=== PATIENT | male | born 1940 | race Caucasian/White ===

== ENCOUNTER 2019-10-11 09:39 | Inpatient (IN) | payer BC, MEDICARE ==
[~2019-10-11] VITALS: Ht 185.4 cm; Wt 90.3 kg
--- NOTE | 2019-10-11 09:50 | NUR ---
RENE RA 89 From Home "Everything hurts Abdomen worse +Nausea/vomiting +Constipation". Patient a/ox4, breathing even and unlabored, no sob noted, needs attended, kept comfortable. Attached to the satellite project site monitor.
[2019-10-11] MEDS ORDERED: MORPHINE SULFATE INJ 4 MG/ML DISP.SYRIN ONE (09:59)
[2019-10-11] MEDS ORDERED: IV NS 0.9% 1,000 ML BAG IV ONE ×2 (10:00→12:00)
[2019-10-11] MEDS ORDERED: MORPHINE SULFATE INJ 2 MG/ML DISP.SYRIN IV ONE (10:00)
[2019-10-11] MEDS ORDERED: CARV6.252 PO (10:57)
[2019-10-11] MEDS ORDERED: NITR0.4T48 PO (10:57)
[2019-10-11] MEDS ORDERED: ATOR20TA PO (10:57)
[2019-10-11] MEDS ORDERED: CLOP75TA15 PO (10:57)
[2019-10-11] MEDS ORDERED: LISI2.5T2 PO (10:57)
[2019-10-11] MEDS ORDERED: ASPI-1498 PO (10:57)
[2019-10-11 11:16] LABS: BASOPHILS # (AUTO) 0.3 /CMM (0.0-0.2); BASOPHILS % (AUTO) 0.8 % (0.0-2.0); EOSINOPHILS % (AUTO) 0.5 % (0.0-6.0); HEMATOCRIT 34 % (39-51); HEMOGLOBIN 11.2 g/dL (13.5-17.5); LYMPHOCYTES % (AUTO) 5.4 % (20.0-44.0); MEAN CORPUSCULAR HGB CONC 33 g/dl (31.0-36.0); MEAN CORPUSCULAR VOLUME 99 fL (80-96); MONOCYTES # (AUTO) 3.1 /CMM (0.1-1.30); MONOCYTES % (AUTO) 8.3 % (2.0-12.0); NEUTROPHILS # (AUTO) 31.4 /CMM (1.8-8.9); PLATELET COUNT (AUTO) 536 /CMM (150-450)
[2019-10-11] MEDS ORDERED: VANCOMYCIN HCL 1 GM in IV D5W 260 ML IV ONE (11:30)
[2019-10-11] MEDS ORDERED: PIPERACILLIN /TAZOBACTAM 3.375 G in IV D5W 50 ML IV ONE (11:30)
[2019-10-11 11:40] LABS: ALANINE AMINOTRANSFERASE 26 U/L (12-78); ALKALINE PHOSPHATASE 150 U/L (46-116); ASPARTATE AMINOTRANSFERASE 24 U/L (15-37); BILIRUBIN,DIRECT 0.2 mg/dL (0.0-0.2); BILIRUBIN,TOTAL 0.4 mg/dL (0.2-1.0); CARBON DIOXIDE 18 mmol/L (21-32); CHLORIDE 94 mmol/L (98-107); CREATININE 4.9 mg/dL (0.6-1.3); GLUCOSE 122 mg/dL (74-106); POTASSIUM 4.2 mmol/L (3.5-5.1); SODIUM SERUM 128 mmol/L (136-145); TOTAL PROTEIN, SERUM 6.3 g/dL (6.4-8.2)
[2019-10-11 11:50] LABS: UREA NITROGEN, BLOOD 142 mg/dL (7-18)
--- NOTE | 2019-10-11 12:00 | NUR ---
PATIENT RESTING, NO DISTRESS NOTED. NEEDS ATTENDED.
[2019-10-11 12:14] LABS: BAND % (MANUAL) 3 % (0.0-5.0); EOSINOPHILS % (MANUAL) 1 % (0-4); LYMPHOCYTES % (MANUAL) 7 % (16-48); MONOCYTES % (MANUAL) 4 % (0-11.0); NEUTROPHILS % (MANUAL) 85 (42-76)
--- NOTE | 2019-10-11 13:30 | NUR ---
MEDICARE SALES REPRESENTATIVE NOTE Received patient awake in bed. In room 114-1. AO x3. Hard of hearing. Hooked up to tele box. Has urinal at bedside. Able to walk to bathroom. No signs of distress. On NC 3L tolerating well. No co pain or discomfort. Safety measures reinforced. Call light within reach. Will continue to monitor.
[2019-10-11 14:16] LABS: APPEARANCE,URINE CLEAR (CLEAR); BILIRUBIN,URINE NEGATIVE (NEGATIVE); BLOOD, URINE NEGATIVE Ery/uL (NEGATIVE); COLOR,URINE YELLOW (YELLOW); KETONES,URINE NEGATIVE (NEGATIVE); LEUKOCYTE ESTERASE ,URINE NEGATIVE (NEGATIVE); NITRITE, URINE NEGATIVE (NEGATIVE); PH,URINE 5.5 (5.0-8.0); PROTEIN,URINE NEGATIVE (NEGATIVE); UGLUCOSE NEGATIVE (NEGATIVE); UROBILINOGEN,URINE 0.2 EU/dL (0.2)
[2019-10-11 14:26] LABS: EOSINOPHIL,URINE None Seen
--- NOTE | 2019-10-11 14:30 | NUR ---
REPORT GIVEN TO SHERRI COHEN
[2019-10-11 14:32] LABS: CREATININE, URINE 122.6 MG/DL (30.0-125.0); URINE TOTAL PROTEIN 46.3 mg/dL (0-11.9)
[2019-10-11] MEDS ORDERED: IV NS 0.9% 1,000 ML IV PRN (14:33)
[2019-10-11] MEDS ORDERED: FEE PK DOSING 1 MIN EA MC ONE (14:53)
[2019-10-11] MEDS ORDERED: Z GUARD REMEDY 2 OZ OINT TP PRN (15:00)
[2019-10-11] MEDS ORDERED: MAGNESIUM HYDROXIDE 30 ML UDC PO PRN (15:00)
[2019-10-11] MEDS ORDERED: HYDROCODONE/APAP 5/325MG 1 EACH TABLET PO PRN (15:00)
[2019-10-11] MEDS ORDERED: ZOLPIDEM TARTRATE 5 MG TABLET PO PRN (15:00)
[2019-10-11] MEDS ORDERED: ACETAMINOPHEN 325 MG TABLET PO PRN (15:00)
[2019-10-11] MEDS ORDERED: MAG HYDROX/AL HYDROX/SIMETH 30 ML UDC PO PRN (15:00)
--- NOTE | 2019-10-11 15:13 | NUR ---
PATIENT A/OX3, C/O MILD SOB, 96-98% ON 3LPM VIA NC. PATIENT TRANSFERRED TO ROOM 314-1 VIA ACLS PROTOCOL. NEEDS ATTENDED.
[2019-10-11 15:27] LABS: ABG BASE EXCESS -9.2 mmol/L; ABG OXYGEN SATURATION 98.4 % (92.0-98.5); ABG PCO2 30.2 mmHg (35.0-45.0); ABG PH 7.329 (7.350-7.450); ABG PO2 127.4 mmHg (75.0-100.0); COHb 0.9 % (0.5-1.5); MetHb 0.3 % (0.0-1.5); O2Hb 97.2 % (94.0-97.0); SITE, ABG Right Femoral; VENT MODE, BG NC 3L
--- NOTE | 2019-10-11 15:30 | NUR ---
SURGICAL SERVICES COORDINATOR OPENING NOTE Pls disregard time of 1330 in previous note. It should be 1530.
[2019-10-11 16:00] VITALS: BP 103/58
[2019-10-11] MEDS: PIPERACILLIN /TAZOBACTAM 2.25 G in IV D5W 50 ML IV SCH ×2 (18:26→23:14)
--- NOTE | 2019-10-11 18:45 | NUR ---
TYPE CASTING MACHINE OPERATOR CLOSING NOTE Patient in bed appears calm and relaxed. No signs of distress. All due meds given. All needs met. Kept clean and comfortable. Vital signs within normal limits. Safety measures reinforced. Call light within reache. Bed locked and on lowest position. Will endorse to electric accounting machine operator nurse for sara.
[2019-10-11 20:00] VITALS: BP 102/51
--- NOTE | 2019-10-11 20:23 | NUR ---
RN NOTES, PATIENT NOTED W/O THE O2, NOTED PATIENT LETHARGIC, WITH RR 26-30, PUT PATIENT ON 5LPM VIA NC AND O2 WENT TO 97%, STILL CONTINUE LETHARGIC INFORMED BLOSSOM AND HE REPLIED WITH NNO BUT CONTINUE MONITORING, HE REVIEW THE PRIOR LABS, HE STATED [facility] AWARE AND PATIENT WITH SIGNIFICANT PNA AND PLEURAL EFFUSION, AND NEED THORACENTESIS PER [facility] ALREADY ORDERED, WILL CONTINUE TO MONITOR CLOSELY.
[2019-10-11] MEDS: DOXYCYCLINE 100 MG in IV NS 0.9% 100 ML IV SCH (22:16)
[2019-10-12] VITALS: BP 102/54
[2019-10-12 04:00] VITALS: BP 97/55
[2019-10-12] MEDS: PIPERACILLIN /TAZOBACTAM 2.25 G in IV D5W 50 ML IV SCH ×2 (05:03→13:08)
[2019-10-12 06:59] LABS: BASOPHILS # (AUTO) 0.2 /CMM (0.0-0.2); BASOPHILS % (AUTO) 0.4 % (0.0-2.0); EOSINOPHILS % (AUTO) 0.1 % (0.0-6.0); HEMATOCRIT 32 % (39-51); HEMOGLOBIN 10.8 g/dL (13.5-17.5); LYMPHOCYTES # (AUTO) 2.7 /CMM (0.8-4.8); LYMPHOCYTES % (AUTO) 4.8 % (20.0-44.0); MEAN CORPUSCULAR HGB CONC 33 g/dl (31.0-36.0); MEAN CORPUSCULAR VOLUME 97 fL (80-96); MONOCYTES # (AUTO) 3.3 /CMM (0.1-1.30); MONOCYTES % (AUTO) 5.8 % (2.0-12.0); NEUTROPHILS # (AUTO) 49.6 /CMM (1.8-8.9); NEUTROPHILS % (AUTO) 88.9 % (43.0-81.0); PLATELET COUNT (AUTO) 612 /CMM (150-450); RED BLOOD CELL COUNT(AUTO) 3.33 MIL/uL (4.5-6.0)
[2019-10-12 07:09] LABS: CALCIUM, SERUM 8.5 mg/dL (8.5-10.1); CARBON DIOXIDE 24 mmol/L (21-32); CHLORIDE 98 mmol/L (98-107); CREATININE 3.8 mg/dL (0.6-1.3); GLUCOSE 163 mg/dL (74-106); POTASSIUM 4.1 mmol/L (3.5-5.1); SODIUM SERUM 138 mmol/L (136-145)
--- NOTE | 2019-10-12 07:10 | NUR ---
RN NOTES, NO SIGNIFICANT CHANGE IN CONDITION DURING THE NIGHT, PATIENT CONTINUE ON 5LPM VIA NC WITH O2 SAT LEVEL >94%, PATIENT LETHARGIC AT TIMES WITH SOB, PER BLOSSOM CONT TO MONITOR AND [facility] AWARE AND ORDERED ALREADY THORACENTESIS, WILL ENDORSE CONTINUITY OF CARE TO ONCOMING NURSE.
[2019-10-12 07:13] LABS: UREA NITROGEN, BLOOD 149 mg/dL (7-18)
[2019-10-12 07:14] LABS: CHOLESTEROL 61 mg/dL (<200); CREATINE KINASE, TOTAL 58 U/L (39-308); HDL CHOLESTEROL 11 mg/dL (40-60); LDL 26 mg/dL (0-99); TRIGLYCERIDES 115 mg/dL (30-150)
[2019-10-12 07:19] LABS: ALANINE AMINOTRANSFERASE 29 U/L (12-78); ALBUMIN 2.1 g/dL (3.4-5.0); ALKALINE PHOSPHATASE 153 U/L (46-116); ASPARTATE AMINOTRANSFERASE 29 U/L (15-37); B-TYPE NATRIURETIC PEPTIDE 1413 PG/ML (0-125); BILIRUBIN,TOTAL 0.6 mg/dL (0.2-1.0); MAGNESIUM 2.7 mg/dL (1.8-2.4); PHOSPHORUS 6.4 mg/dL (2.5-4.9); TOTAL PROTEIN, SERUM 6.6 g/dL (6.4-8.2)
[2019-10-12 07:23] LABS: APPEARANCE,URINE CLEAR (CLEAR); BILIRUBIN,URINE NEGATIVE (NEGATIVE); BLOOD, URINE NEGATIVE Ery/uL (NEGATIVE); COLOR,URINE YELLOW (YELLOW); CREATININE, URINE 72.8 MG/DL (30.0-125.0); KETONES,URINE NEGATIVE (NEGATIVE); LEUKOCYTE ESTERASE ,URINE NEGATIVE (NEGATIVE); NITRITE, URINE NEGATIVE (NEGATIVE); PH,URINE 5.5 (5.0-8.0); PROTEIN,URINE NEGATIVE (NEGATIVE); UGLUCOSE NEGATIVE (NEGATIVE); URINE TOTAL PROTEIN 39.2 mg/dL (0-11.9); UROBILINOGEN,URINE 0.2 EU/dL (0.2)
[2019-10-12 07:26] LABS: WHITE BLOOD COUNT (AUTO) 55.9 K/uL (4.3-11.0)
[2019-10-12 07:45] LABS: BACTERIA,URINE None seen /HPF (None Seen); RBC,URINE 0-2 /HPF (0-2); SQUAMOUS EPITHELIAL CELL,UR Few /HPF (None Seen); WBC,URINE 0-2 /HPF (0-3)
[2019-10-12 07:46] LABS: EOSINOPHIL,URINE None Seen; URIC ACID CRYSTALS,URINE Many /HPF (None Seen)
[2019-10-12 08:00] VITALS: BP 82/55
--- NOTE | 2019-10-12 08:00 | NUR ---
alisson rn note patient in bed ,with sob noted and coffea ground vomiting, on 5l of nc st 94% bed in lowest and locked position on tele monitor sr , rt hand hl is removed by patient will monitor closely
[2019-10-12 08:03] LABS: BAND % (MANUAL) 17 % (0.0-5.0); LYMPHOCYTES % (MANUAL) 4 % (16-48); METAMYELOCYTES % 1 % (0-0); MONOCYTES % (MANUAL) 2 % (0-11.0); MYELOCYTES % 1 % (0-0); NEUTROPHILS % (MANUAL) 75 (42-76)
[2019-10-12] MEDS: DOXYCYCLINE 100 MG in IV NS 0.9% 100 ML IV SCH (08:57)
[2019-10-12] MEDS ORDERED: CLOPIDOGREL BISULFATE 75 MG TABLET PO SCH (09:00)
[2019-10-12] MEDS ORDERED: HEPARIN SODIUM, PORCINE 5000 UNITS/1 ML VIAL SQ SCH (09:00)
[2019-10-12] MEDS: ONDANSETRON HCL/PF 4 MG/2 ML VIAL IVP PRN ×2 (09:00→15:00)
[2019-10-12] MEDS ORDERED: ASPIRIN EC 81 MG TABLET.DR PO SCH (09:00)
--- NOTE | 2019-10-12 09:15 | NUR ---
alisson rn note dr barber at bedside aware that patieny has sob abg ordered , called rt aware that has coffee gerund emeses more then 100 ml,with order give bolus 500 ml notified that bp 82/55 and start ivf
--- NOTE | 2019-10-12 09:30 | NUR ---
alisson rn note spoke with dr giraldo notified that coffee ground emeses more then 100 ml noted , bp 82/89 sat 96% this ti,e dr giraldo ordered abg stat Addendum: 10/12/19 at 0954 by GRADY RONQUILLO RN bp 82/59 Addendum: 10/12/19 at 1341 by GRADY RONQUILLO RN DR GIRALDO AWARE ABG RESULT NO NEW ORDER AT THIS TIME
[2019-10-12 09:51] LABS: ABG BASE EXCESS -4.9 mmol/L; ABG OXYGEN SATURATION 94.8 % (92.0-98.5); ABG PCO2 32.7 mmHg (35.0-45.0); ABG PH 7.389 (7.350-7.450); ABG PO2 87.6 mmHg (75.0-100.0); COHb 0.4 % (0.5-1.5); MetHb 0.2 % (0.0-1.5); O2Hb 94.2 % (94.0-97.0); SITE, ABG Left Brachial; VENT MODE, BG nasal cannula
[2019-10-12] MEDS ORDERED: IV D5/ 0.9% NACL 1,000 ML IV ONE (10:00)
[2019-10-12] MEDS ORDERED: IV NS 0.9% 500 ML IV ONE (10:00)
[2019-10-12 12:00] VITALS: BP_SYST 120; BP_SYST 90; BP_DIAS 45; BP_DIAS 54
--- NOTE | 2019-10-12 12:00 | NUR ---
alisson rn note per dr chambers ok to do thoracentesis today ,dr purcell aware that patient will have thoracentesis ,hold asa and heparin
--- NOTE | 2019-10-12 13:34 | NUR ---
BRANT RN NOTE THORACENTESIS DONE, 400 ML FLUIDS REMOVED ,DRY DRESSING ON RT SIDE PLACED NO BLEEDING NOTED , ALSO SPACEMEN SENT TO LAB, MIDLINE NURSE AT BEDSIDE RT UPPER ARM GAGE18 INSERTED, ON IVF ORDERED, ALL NEEDS ATTENDED
--- NOTE | 2019-10-12 13:36 | NUR ---
BRANT RN NOTE LACTIC ACID 6.3 DR SELBY NOTIFIED. OK TO CONT TO IVF ALSO AWARE THAT PATIENT STILL VOMITING COFFEE GROUND EMESES, STATED THAT DUE KIDNEY DAMAGE AWARE THAT BUN 149 CREAT 3.8 Addendum: 10/12/19 at 1455 by GRADY RONQUILLO RN DR HUDSON NOTIFIED THAT WBC TODAY 55.9
--- NOTE | 2019-10-12 14:00 | NUR ---
dr. stafford notified pt. sbp 80,s gave new orders and does not want to move pt to icu ,will continue to monitor.
--- NOTE | 2019-10-12 15:00 | NUR ---
CHIEF CLERK SHELTER NOTE NOTED PATENT HAS COFFEE GROUND EMESES AGAIN, ZOFRAN 4 MG IV WAS GIVEN ORDERED
[2019-10-12] MEDS ORDERED: IV NS 0.9% 1,000 ML IV PRN (15:19)
[2019-10-12] MEDS ORDERED: IV D5/ 0.9% NACL 1,000 ML IV SCH (15:30)
--- NOTE | 2019-10-12 15:30 | NUR ---
patient become unresponsive and desaturates 80's, rapid response initiated and eventually change to code blue .paatient become pulseless.
--- NOTE | 2019-10-12 15:35 | NUR ---
dr. armani gomez talked to family on phone mary peryr and ok continue coding pt.
[2019-10-12 16:00] VITALS: BP 78/54
[2019-10-12] MEDS ORDERED: IV D5/ 0.9% NACL 1,000 ML IV PRN (16:30)
[2019-10-12] MEDS ORDERED: VASOPRESSIN INJ 20 UNIT in IV NS 0.9% 39 ML IV PRN (16:30)
--- NOTE | 2019-10-12 16:30 | NUR ---
TUBE SPLICER RECEIVED PT FROM BRANT BY BED WITH MONITOR. REPORT RECEIVED FROM GRADY RONQUILLO RN. PT S/P CODE BLUE, INTUBATED DURING CODE BLUE. PLACED ON VENT. PT UNRESPONSIVE WITH FIXED PUPILS. ORALLY SUCTIONED COPIOUS AMOUNTS OF COFFEE-GROUNDS GASTRIC CONTENTS. CXR OBTAINED FOR ETT PLACEMENT. NGT PLACED WITH IMMEDIATE RETURN OF DARK BROWN COFFEE-GROUNDS LIKE DRAINAGE, APPROXIMATELY 600 ML. ORDERS FOR PRESSORS RECEIVED. WILL START WHEN AVAILABLE.
--- NOTE | 2019-10-12 16:35 | NUR ---
pt. orally intubated by er doctor for airway protection. successfully intubated with 7.5 ETtube and secured @ 23 cm center of the lips. co2 detector changed to yellow color and breath sounds coarse rhonchi bilateral with symmetrical chest rise post intubation. vent settings below per dr. barber: AC 24 VT 500ML FIO2 100% NO PEEP VENT PLUGGED INTO RED OUTLET WITH ALARMS ON AND FUNCTIONING. JOSIAHUBAG @ BEDSIDE. Addendum: 10/12/19 at 1643 by CANDELARIA ZHAO RT Amended: Links added.
--- NOTE | 2019-10-12 16:45 | NUR ---
POST ACUTE CARE REGISTERED NURSE PT BECAME BRADYCARDIC PROGRESSING TO PEA AND ASYSTOLE. PULSELESS. CODE BLUE CALLED.
--- NOTE | 2019-10-12 16:45 | NUR ---
MISSION WORKER NOTE PATIENT HAS CODED,SEE CODE BLUE FORM AND TRANSFERRED TO ICU BY BED BY ACLS PROTOCOL WITH RT, REPORT GIVEN TO VERÓNICA TOOL CRIB SUPERVISOR NURSE
--- NOTE | 2019-10-12 16:59 | NUR ---
PT @ 1659 Addendum: 10/12/19 at 1704 by CANDELARIA ZHAO RT Amended: Links added.
--- NOTE | 2019-10-12 16:59 | NUR ---
HEALTH FACILITIES SURVEYOR CODE BLUE TERMINATED BY DR AVITIA AFTER CONTINUED PULSELESSNESS AND AFTER DISCUSSION BY PHONE WITH PT'S SO VON ABREU.
[2019-10-12] MEDS ORDERED: NOREPINEPHRINE 8 MG in IV NS 0.9% 242 ML IV PRN (17:00)
[2019-10-12] MEDS ORDERED: DOSE PER PHARMACY MICAFUNGIN 1 EA XX PRN (17:00)
[2019-10-12] MEDS ORDERED: OCTREOTIDE 1,250 MCG in IV NS 0.9% 247.5 ML IV PRN (17:00)
[2019-10-12] MEDS ORDERED: EPINEPHRINE (1:10,000) SYRINGE 1 MG/10 ML DISP.SYRIN IVP ONE ×2 (17:09→17:31)
[2019-10-12] MEDS ORDERED: CALCIUM CHLORIDE 1,000 MG/10 ML DISP.SYRIN IV ONE ×2 (17:09→17:31)
[2019-10-12] MEDS ORDERED: FEE EMEERGENCY 1 MIN EA MC ONE ×2 (17:09→17:31)
[2019-10-12] MEDS ORDERED: SODIUM BICARBONATE SYR 50 MEQ/50 ML DISP.SYRIN IV ONE (17:09)
[2019-10-12] MEDS ORDERED: MICAFUNGIN SODIUM 100 MG in IV NS 0.9% 100 ML IV SCH (17:30)
[2019-10-12] MEDS ORDERED: ETOMIDATE 2 MG/ML VIAL IV ONE (17:36)
[2019-10-12] MEDS ORDERED: SUCCINYLCHOLINE CHLORIDE 20 MG/ML VIAL IV ONE (17:36)
[2019-10-12] MEDS ORDERED: MEROPENEM 500 MG in IV NS 0.9% 50 ML IV SCH (18:00)
--- NOTE | 2019-10-12 18:40 | NUR ---
PHOTO TECHNICIAN PT'S CASE PRESENTED TO NETWORK CONTROL OPERATOR'S OFFICE BY PHONE. PT NOT NETWORK CONTROL OPERATOR'S CASE AND OK TO RELEASE TO FAMILY. BODY TO BE SENT TO [facility]. PT'S SO WAS NOTIFIED BY PHONE AFTER PT WAS DECLARED .
--- NOTE | 2019-10-12 19:00 | NUR ---
RECORD CENTER COORDINATOR BODY WITH BELONGINGS SENT TO [facility]. BELONGINGS BAGGED INCLUDE EYEGLASSES, SWEAT SHIRT AND PANTS. SPOKE WITH PT'S SO VON ABREU BY PHONE. HE WILL CALL [facility]. CONTACT NUMBER FOR BI TECHNICAL LEAD GIVEN.
[2019-10-13 10:08] LABS: *SPE A/G RATIO 0.6 (0.7-1.7); *SPE ALBUMIN 2.1 g/dL (2.9-4.4); *SPE ALPHA-1-GLOBULIN 0.4 g/dL (0.0-0.4); *SPE ALPHA-2-GLOBULIN 1.2 g/dL (0.4-1.0); *SPE BETA GLOBULIN 0.9 g/dL (0.7-1.3); *SPE GLOBULIN, TOTAL 3.5 g/dL (2.2-3.9); *SPE M-SPIKE 0.1 g/dL (Not Observed); *SPEGAMMA GLOBULIN 1.1 g/dL (0.4-1.8)
[2019-10-13] MEDS ORDERED: VANCOMYCIN 1 GM in IV D5W 250 ML IV SCH ×3 (12:00)
== END 2019-10-12 18:50 | disposition expired | DRG 208 ==
LOC: ER 09:41 → TELE-TD 14:28 → ICU 10-12 16:22
PROVIDERS: ADMIT Internal Medicine; ATTEND Family Medicine
PROC: 0BH17EZ Insertion of Endotracheal Airway into Trachea, Via Natural or Artificial Opening (ICD-10-PCS; principal; 2019-10-12)
PROC: 5A2204Z Restoration of Cardiac Rhythm, Single (ICD-10-PCS; principal; 2019-10-12)
PROC: 0W993ZZ Drainage of Right Pleural Cavity, Percutaneous Approach (ICD-10-PCS; principal; 2019-10-12)
PROC: 05HY33Z Insertion of Infusion Device into Upper Vein, Percutaneous Approach (ICD-10-PCS; principal; 2019-10-12)
PROC: 5A1935Z Respiratory Ventilation, Less than 24 Consecutive Hours (ICD-10-PCS; principal; 2019-10-12)
DX: J15.6 Pneumonia due to other Gram-negative bacteria (principal); N17.0 Acute kidney failure with tubular necrosis; J86.9 Pyothorax without fistula; J96.01 Acute respiratory failure with hypoxia; G93.41 Metabolic encephalopathy; E43 Unspecified severe protein-calorie malnutrition; J90 Pleural effusion, not elsewhere classified; J98.11 Atelectasis; E87.2 Acidosis; K92.2 Gastrointestinal hemorrhage, unspecified; E78.5 Hyperlipidemia, unspecified; I25.10 Atherosclerotic heart disease of native coronary artery without angina pectoris; Z88.8 Allergy status to other drugs, medicaments and biological substances; Z79.82 Long term (current) use of aspirin; Z79.01 Long term (current) use of anticoagulants; Z79.899 Other long term (current) drug therapy; I12.9 Hypertensive chronic kidney disease with stage 1 through stage 4 chronic kidney disease, or unspecified chronic kidney disease; N18.9 Chronic kidney disease, unspecified; Z82.49 Family history of ischemic heart disease and other diseases of the circulatory system; I46.9 Cardiac arrest, cause unspecified; I70.0 Atherosclerosis of aorta; I71.4 Abdominal aortic aneurysm, without rupture; M46.00 Spinal enthesopathy, site unspecified
CPT/HCPCS: 36415; 36600; 71045-TC; 71250-TC; 80048-TC; 80053-TC; 80061-TC; 80076-TC; 81000-TC; 82550-TC; 82570-TC; 82803-TC; 83605-TC; 83735-TC; 83880; 83970; 84100-TC; 84155; 84155-TC; 84165; 84300-TC; 84484-TC; 85025-TC; 85730-TC; 86803; 87040-TC; 87070-TC; 87075-TC; 87081-TC; 87086-TC; 87102-TC; 87449; 87806; 89051-TC; 94002; A4216; G0378; J0171; J0330; J2185; J2248; J2270; J2405; J2543; J3370; J3490; J7030; J7040; J7042; J7050; J7060